=== PATIENT | female | born 1935 | race Caucasian/White ===

== ENCOUNTER 2017-02-12 11:24 | Emergency (ER) | payer OTHER, MEDICARE ==
[~2017-02-12] VITALS: Ht 160 cm; Wt 83.1 kg
[~2017-02-12 11:24] MED LIST: ASPIRIN; BENI; METOPROLOL
[2017-02-12 14:20] LABS: POINT-OF-CARE METER ID UU14100415
[2017-02-12] MEDS ORDERED: MEDROL DOSEPAK4 MG PO (17:22)
[2017-02-12] MEDS ORDERED: ULTRAM50 MG PO (17:22)
[2017-02-12 17:35] VITALS: BP 173/89
== END 2017-02-12 17:46 | disposition home or self-care (01) ==
LOC: EME 11:24
PROVIDERS: Emergency Medicine
DX: M48.06 Spinal stenosis, lumbar region (principal); E11.9 Type 2 diabetes mellitus without complications; J44.9 Chronic obstructive pulmonary disease, unspecified; I10 Essential (primary) hypertension; Z85.038 Personal history of other malignant neoplasm of large intestine; Z79.82 Long term (current) use of aspirin; Z88.0 Allergy status to penicillin; Z88.8 Allergy status to other drugs, medicaments and biological substances; Z91.041 Radiographic dye allergy status
CPT/HCPCS: 72148; 82948; 99281; 99284; J3010; J7040; J7512

== ENCOUNTER 2017-03-06 16:59 | Emergency (ER) | payer OTHER, MEDICARE ==
[~2017-03-06] VITALS: Ht 160 cm; Wt 81.8 kg
[~2017-03-06 16:59] MED LIST changes: +MEDROL DOSEPAK4 MG PO; +ULTRAM50 MG PO
[2017-03-06] MEDS ORDERED: DILAUDID2 MG PO (18:52)
[2017-03-06 19:16] VITALS: BP 194/90
== END 2017-03-06 19:17 | disposition home or self-care (01) ==
LOC: EME 16:59
DX: M54.9 Dorsalgia, unspecified (principal); G89.29 Other chronic pain; M62.81 Muscle weakness (generalized); E11.9 Type 2 diabetes mellitus without complications; J44.9 Chronic obstructive pulmonary disease, unspecified; I10 Essential (primary) hypertension; Z85.038 Personal history of other malignant neoplasm of large intestine; Z79.82 Long term (current) use of aspirin; Z88.8 Allergy status to other drugs, medicaments and biological substances; Z88.0 Allergy status to penicillin; F43.21 Adjustment disorder with depressed mood
CPT/HCPCS: 90839; 99281; 99284

== ENCOUNTER 2018-01-01 20:31 | Emergency (ER) | payer OTHER, MEDICARE ==
[~2018-01-01] VITALS: Ht 157.5 cm; Wt 84.7 kg
[~2018-01-01 20:31] MED LIST changes: +ASPIR-LOW81 MG PO; -ASPIRIN; +DILAUDID2 MG PO; +LOPRESSOR50 MG PO; -METOPROLOL
[2018-01-01 20:45] VITALS: BP 157/94
[2018-01-01 22:49] LABS: HEMATOCRIT 43.5 % (36.0-46.0); MCH 29.2 PG (29.0-34.0); MCHC 34.5 G/DL (30.0-36.0); MCV 84.8 FL (83-99); PLATELET COUNT 140 K/uL (156-360); RBC DIS.WIDTH-CV 13.1 % (11.8-14.6); RBC DIS.WIDTH-SD 40.8 % (39-53); RED BLOOD COUNT 5.13 M/uL (3.80-5.20); WHITE BLOOD COUNT 12.6 K/uL (4.1-10.2)
[2018-01-01 22:54] LABS: INTER. NORMALIZED RATIO 1.1
[2018-01-01 22:57] LABS: PTT 25.6 SEC (25-37)
[2018-01-01] MEDS ORDERED: CLEOCIN300 MG PO (23:06)
[2018-01-01 23:23] LABS: CHLORIDE 99 MEQ/L (99-109); GFR ESTIMATE (CALCULATED) 57 mL/min/; GLUCOSE 181 mg/dL (70-99); POTASSIUM 4.2 MEQ/L (3.7-5.4); SODIUM 135 MEQ/L (136-147); UREA NITROGEN (BUN) 22 mg/dL (9-23)
== END 2018-01-01 23:52 | disposition home or self-care (01) ==
LOC: EME 20:31
PROVIDERS: Physician Assistant
DX: L03.116 Cellulitis of left lower limb (principal); E11.51 Type 2 diabetes mellitus with diabetic peripheral angiopathy without gangrene; E11.65 Type 2 diabetes mellitus with hyperglycemia; R60.0 Localized edema; I10 Essential (primary) hypertension; J43.9 Emphysema, unspecified; Z85.038 Personal history of other malignant neoplasm of large intestine; Z79.82 Long term (current) use of aspirin; Z88.0 Allergy status to penicillin; Z88.5 Allergy status to narcotic agent; Z88.6 Allergy status to analgesic agent
CPT/HCPCS: 73590; 80048; 85027; 85610; 85730; 93971; 99281; 99284

== ENCOUNTER 2018-01-13 22:49 | Inpatient (IN) | payer OTHER, MEDICARE ==
[~2018-01-13] VITALS: Ht 154.9 cm; Wt 75.5 kg
[~2018-01-13 22:49] MED LIST changes: +CLEOCIN300 MG PO
[2018-01-14 00:25] LABS: HEMATOCRIT 43.7 % (36.0-46.0); HEMOGLOBIN 15.8 G/DL (11.9-15.5); MCH 29.4 PG (29.0-34.0); MCHC 36.2 G/DL (30.0-36.0); MCV 81.2 FL (83-99); RBC DIS.WIDTH-CV 12.9 % (11.8-14.6); RBC DIS.WIDTH-SD 37.7 % (39-53); RED BLOOD COUNT 5.38 M/uL (3.80-5.20); WHITE BLOOD COUNT 15.9 K/uL (4.1-10.2)
[2018-01-14 00:27] LABS: PLATELET COUNT 186 K/uL (156-360)
[2018-01-14 00:36] LABS: ALBUMIN 3.9 g/dL (3.2-4.8); CHLORIDE 87 mEq/L (99-109); POTASSIUM 5.4 mEq/L (3.7-5.4); SODIUM 119 mEq/L (136-147)
[2018-01-14 00:38] LABS: TOTAL PROTEIN 6.8 g/dL (6.4-8.3)
[2018-01-14 00:39] LABS: GLUCOSE 716 mg/dL (70-99)
[2018-01-14 00:40] LABS: TOTAL BILIRUBIN 1.5 mg/dL (0.0-1.0)
[2018-01-14 00:42] LABS: ALKALINE PHOSPHATASE 116 IU/L (3-129); CREATININE 2.2 mg/dL (0.6-1.3); GFR ESTIMATE (CALCULATED) 23 mL/min/
[2018-01-14 00:43] LABS: UREA NITROGEN (BUN) 70 mg/dL (9-23)
[2018-01-14 00:44] LABS: AST (GOT) 13 IU/L (2-34)
[2018-01-14 00:45] LABS: ALT (GPT) 23 IU/L (3-49); LIPASE 127 U/L (1.0-51.0)
[2018-01-14] MEDS ORDERED: HUMALOG MI100 UNIT/6 SC ×2 (01:29)
[2018-01-14] MEDS ORDERED: IRBESARTAN-HCT1 EAC1 PO (01:29)
[2018-01-14 01:44] LABS: MAGNESIUM 2.4 mg/dL (1.3-2.7)
[2018-01-14 01:49] LABS: PHOSPHORUS 4.7 mg/dL (2.5-4.9)
[2018-01-14 01:53] LABS: TROP-I INTERPRETATION NEGATIVE; TROPONIN-I 0.01 ng/mL (0.0-0.30)
[2018-01-14 02:53] LABS: APPEARANCE SL.HAZY ((CLEAR)); BILIRUBIN NEGATIVE; BLOOD SMALL; COLOR YELLOW ((YELLOW)); GLUCOSE (STRIP) >=500; KETONES NEGATIVE; LEUKOCYTES LARGE; NITRITE NEGATIVE; PROTEIN (STRIP) NEGATIVE; UROBILINOGEN 0.2 MG/DL (0.2-1.0)
[2018-01-14 03:00] LABS: BACTERIA NONE SEEN /HPF; EPITHELIAL CELLS RARE /HPF; MUCUS NONE SEEN /LPF; UCUL ADDED? YES; WHITE BLOOD CELLS 30-40 /HPF (0-5)
[2018-01-14 03:47] LABS: POTASSIUM 4.5 mEq/L (3.7-5.4)
[2018-01-14 03:53] LABS: CHLORIDE 96 mEq/L (99-109); CREATININE 1.9 mg/dL (0.6-1.3); GFR ESTIMATE (CALCULATED) 27 mL/min/; GLUCOSE 322 mg/dL (70-99); SODIUM 127 mEq/L (136-147); UREA NITROGEN (BUN) 64 mg/dL (9-23)
[2018-01-14 07:19] VITALS: BP 183/78
[2018-01-14 12:47] VITALS: BP 173/74
[2018-01-14 22:02] LABS: HEMATOCRIT 32.9 % (36.0-46.0); MCH 30.2 PG (29.0-34.0); MCHC 34.7 G/DL (30.0-36.0); PLATELET COUNT 150 K/uL (156-360); RBC DIS.WIDTH-CV 13.2 % (11.8-14.6); RBC DIS.WIDTH-SD 41.9 % (39-53); WHITE BLOOD COUNT 20.1 K/uL (4.1-10.2)
[2018-01-14 22:03] LABS: HEMOGLOBIN 11.4 G/DL (11.9-15.5); RED BLOOD COUNT 3.78 M/uL (3.80-5.20)
[2018-01-14 22:12] LABS: POTASSIUM 5.4 mEq/L (3.7-5.4); SODIUM 130 mEq/L (136-147)
[2018-01-14 22:13] LABS: GLUCOSE 327 mg/dL (70-99)
[2018-01-14 22:18] LABS: UREA NITROGEN (BUN) 47 mg/dL (9-23)
[2018-01-14 22:23] LABS: CHLORIDE 109 mEq/L (99-109); CREATININE 1.4 mg/dL (0.6-1.3); GFR ESTIMATE (CALCULATED) 38 mL/min/
[2018-01-14 22:34] LABS: MODE RA; SITE LR; TOTAL RESP RATE 17 resp/min; pH 7.24 (7.35-7.45)
[2018-01-14 22:35] LABS: BASE EXCESS -14.8 mEq/L (-3 to +3); BICARBONATE 11.1 mEq/L (22-26); CARBOXY HGB 1.2 % (0-5); METHEMOGLOBIN 0.8 % (0-1.5); O2 SATURATION (CALCULATED) 96.9 % (95-99); PCO2 26 mm Hg (35-45); PO2 82 mm Hg (80-100)
[2018-01-14 22:51] LABS: TROP-I INTERPRETATION NEGATIVE; TROPONIN-I 0.08 ng/mL (0.0-0.30)
[2018-01-15] VITALS (20 sets, daily range): BP systolic 87–136; BP diastolic 47–83
[2018-01-15 01:09] LABS: DEVICE VENT; FI02 100 %; MECHANICAL RATE 18 resp/min; MODE ACVC; PEEP 5 CM/H20; SITE ALINE; TIDAL VOLUME 400 ML; TOTAL RESP RATE 18 resp/min
[2018-01-15 01:10] LABS: BASE EXCESS -10.3 mEq/L (-3 to +3); CARBOXY HGB 1.5 % (0-5); METHEMOGLOBIN 1.1 % (0-1.5); O2 SATURATION (CALCULATED) 100 % (95-99); PCO2 26 mm Hg (35-45); PO2 458 mm Hg (80-100); pH 7.34 (7.35-7.45)
[2018-01-15 01:28] LABS: BASOPHIL (%) 0.1 % (0-1); EOSINOPHIL (%) 0 % (0-5); HEMATOCRIT 26.3 % (36.0-46.0); HEMOGLOBIN 9.6 G/DL (11.9-15.5); IMMATURE GRANULOCYTE (%) 0.8 % (0.0-0.7); LYMPHOCYTE (%) 3.5 % (15-42); LYMPHOCYTE COUNT 0.8 K/uL (1.0-2.8); MCH 30.4 PG (29.0-34.0); MCHC 36.5 G/DL (30.0-36.0); MCV 83.2 FL (83-99); MONOCYTE (%) 6.8 % (3-12); MONOCYTE COUNT 1.5 K/uL (0-0.8); NEUTROPHIL (%) 88.8 % (45-76); NEUTROPHIL COUNT 19.5 K/uL (1.8-6.4); PLATELET COUNT 128 K/uL (156-360); RBC DIS.WIDTH-SD 39.6 % (39-53); RED BLOOD COUNT 3.16 M/uL (3.80-5.20)
[2018-01-15 01:43] LABS: CHLORIDE 116 mEq/L (99-109)
[2018-01-15 01:45] LABS: GLUCOSE 217 mg/dL (70-99)
[2018-01-15 01:49] LABS: GFR ESTIMATE (CALCULATED) 57 mL/min/
[2018-01-15 01:50] LABS: UREA NITROGEN (BUN) 42 mg/dL (9-23)
[2018-01-15 01:54] LABS: POTASSIUM 3.7 mEq/L (3.7-5.4); SODIUM 141 mEq/L (136-147)
[2018-01-15 03:39] LABS: DEVICE VENT; FI02 60 %; MECHANICAL RATE 18 resp/min; MODE ACVC; PCO2 29 mm Hg (35-45); PEEP 5 CM/H20; PO2 234 mm Hg (80-100); SITE ALINE; TIDAL VOLUME 400 ML; TOTAL RESP RATE 18 resp/min
[2018-01-15 03:40] LABS: BASE EXCESS -11.5 mEq/L (-3 to +3); BICARBONATE 13.9 mEq/L (22-26); METHEMOGLOBIN 0.7 % (0-1.5); O2 SATURATION (CALCULATED) 99.7 % (95-99); pH 7.29 (7.35-7.45)
[2018-01-15 03:50] LABS: CREATINE KINASE 136 IU/L (1-294)
[2018-01-15 03:53] LABS: TROP-I INTERPRETATION NEGATIVE; TROPONIN-I 0.08 ng/mL (0.0-0.30)
[2018-01-15 06:00] LABS: DEVICE VENT; FI02 60 %; MECHANICAL RATE 18 resp/min; MODE ACVC; PEEP 5 CM/H20; SITE ALINE; TIDAL VOLUME 400 ML; TOTAL RESP RATE 18 resp/min
[2018-01-15 06:01] LABS: PCO2 27 mm Hg (35-45); PO2 240 mm Hg (80-100); pH 7.36 (7.35-7.45)
[2018-01-15 06:02] LABS: BASE EXCESS -8.9 mEq/L (-3 to +3); BICARBONATE 15.3 mEq/L (22-26); CARBOXY HGB 1.1 % (0-5); METHEMOGLOBIN 0.8 % (0-1.5); O2 SATURATION (CALCULATED) 99.6 % (95-99)
[2018-01-15 06:47] LABS: TROP-I INTERPRETATION NEGATIVE; TROPONIN-I 0.09 ng/mL (0.0-0.30)
[2018-01-15 06:49] LABS: HEMATOCRIT 29.5 % (36.0-46.0); HEMOGLOBIN 10.8 G/DL (11.9-15.5); MCHC 36.6 G/DL (30.0-36.0); MCV 81.9 FL (83-99); PLATELET COUNT 134 K/uL (156-360); RBC DIS.WIDTH-CV 13.2 % (11.8-14.6); RBC DIS.WIDTH-SD 39.4 % (39-53)
[2018-01-15 06:52] LABS: WHITE BLOOD COUNT 30.7 K/uL (4.1-10.2)
[2018-01-15 07:02] LABS: CHLORIDE 111 MEQ/L (99-109); POTASSIUM 4.4 MEQ/L (3.7-5.4); SODIUM 140 MEQ/L (136-147)
[2018-01-15 07:06] LABS: ABS NEUTROPHIL COUNT 30.2; BAND NEUTROPHILS 2.6 % (0-8.0); CHLORIDE 110 MEQ/L (99-109); CREATININE 1.3 MG/DL (0.6-1.3); EOSINOPHIL ABS CT 0; GFR ESTIMATE (CALCULATED) 42 mL/min/; GLUCOSE 265 mg/dL (70-99); MAGNESIUM 1.6 mg/dl (1.3-2.7); MONOCYTES 1.7 % (0-9.0); PHOSPHORUS 3.5 mg/dL (2.5-4.9); POTASSIUM 4.2 MEQ/L (3.7-5.4); SEG.NEUTROPHILS 95.7 % (46.0-76.0); SMUDGE CELLS 1.7; SODIUM 137 MEQ/L (136-147); UREA NITROGEN (BUN) 40 mg/dL (9-23)
[2018-01-15 14:39] LABS: HEMATOCRIT 27.2 % (36.0-46.0); HEMOGLOBIN 9.8 G/DL (11.9-15.5); MCH 29.5 PG (29.0-34.0); MCV 81.9 FL (83-99); PLATELET COUNT 118 K/uL (156-360); RBC DIS.WIDTH-CV 13.7 % (11.8-14.6); RBC DIS.WIDTH-SD 40.4 % (39-53); RED BLOOD COUNT 3.32 M/uL (3.80-5.20); WHITE BLOOD COUNT 21.5 K/uL (4.1-10.2)
[2018-01-15 15:05] LABS: CHLORIDE 106 MEQ/L (99-109); POTASSIUM 4.4 MEQ/L (3.7-5.4); SODIUM 137 MEQ/L (136-147)
[2018-01-15 15:26] LABS: TROP-I INTERPRETATION NEGATIVE; TROPONIN-I 0.12 ng/mL (0.0-0.30)
[2018-01-15 20:10] LABS: CHLORIDE 106 MEQ/L (99-109); POTASSIUM 3.9 MEQ/L (3.7-5.4); SODIUM 138 MEQ/L (136-147); TROP-I INTERPRETATION NEGATIVE; TROPONIN-I 0.16 ng/mL (0.0-0.30)
[2018-01-15 20:17] LABS: HEMATOCRIT 21.7 % (36.0-46.0); HEMOGLOBIN 7.9 G/DL (11.9-15.5); MCH 29.9 PG (29.0-34.0); MCHC 36.4 G/DL (30.0-36.0); MCV 82.2 FL (83-99); PLAT.SUFFICIENCY DECREASED; RBC DIS.WIDTH-CV 13.7 % (11.8-14.6); RBC DIS.WIDTH-SD 40.5 % (39-53); WHITE BLOOD COUNT 16.4 K/uL (4.1-10.2)
[2018-01-15 20:27] LABS: RED BLOOD COUNT 2.64 M/uL (3.80-5.20)
[2018-01-15 20:28] LABS: PLATELET COUNT 79 K/uL (156-360)
[2018-01-15 23:26] LABS: BASE EXCESS -4.3 mEq/L (-3 to +3); BICARBONATE 17.6 mEq/L (22-26); CARBOXY HGB 1.1 % (0-5); METHEMOGLOBIN 0.6 % (0-1.5); O2 SATURATION (CALCULATED) 98.1 % (95-99); PCO2 22 mm Hg (35-45); PO2 81 mm Hg (80-100); pH 7.51 (7.35-7.45)
[2018-01-15 23:27] LABS: COMMENTS - BLOOD GASES C+A+; DEVICE VENTILATOR; FI02 30 %; MECHANICAL RATE 18 resp/min; MODE AC; PEEP 5 CM/H20; TIDAL VOLUME 400 ML; TOTAL RESP RATE 26 resp/min
[2018-01-16] VITALS (14 sets, daily range): BP systolic 93–119; BP diastolic 42–66
[2018-01-16 05:24] LABS: BASOPHIL (%) 0.1 % (0-1); EOSINOPHIL (%) 0 % (0-5); HEMATOCRIT 24.8 % (36.0-46.0); HEMOGLOBIN 8.9 G/DL (11.9-15.5); LYMPHOCYTE (%) 4.8 % (15-42); MCH 29.4 PG (29.0-34.0); MCHC 35.9 G/DL (30.0-36.0); MCV 81.8 FL (83-99); MONOCYTE (%) 7.3 % (3-12); MONOCYTE COUNT 1.5 K/uL (0-0.8); NEUTROPHIL (%) 86.8 % (45-76); NEUTROPHIL COUNT 17.9 K/uL (1.8-6.4); NRBC (%) 0.1 /100 WBC (0-0); PLATELET COUNT 84 K/uL (156-360); RBC DIS.WIDTH-CV 13.8 % (11.8-14.6); RBC DIS.WIDTH-SD 40.6 % (39-53); RED BLOOD COUNT 3.03 M/uL (3.80-5.20); WHITE BLOOD COUNT 20.5 K/uL (4.1-10.2)
[2018-01-16 05:25] LABS: BASE EXCESS -0.2 mEq/L (-3 to +3); BICARBONATE 22.3 mEq/L (22-26); CARBOXY HGB 1.1 % (0-5); O2 SATURATION (CALCULATED) 96.2 % (95-99); PCO2 28 mm Hg (35-45); PO2 67 mm Hg (80-100); pH 7.51 (7.35-7.45)
[2018-01-16 05:26] LABS: COMMENTS - BLOOD GASES C+A+; DEVICE VENTILATOR; FI02 30 %; MECHANICAL RATE 18 resp/min; MODE AC; PEEP 5 CM/H20; TIDAL VOLUME 400 ML; TOTAL RESP RATE 20 resp/min
[2018-01-16 06:01] LABS: CHLORIDE 103 MEQ/L (99-109); CREATININE 1.5 MG/DL (0.6-1.3); GFR ESTIMATE (CALCULATED) 35 mL/min/; GLUCOSE 345 mg/dL (70-99); POTASSIUM 3.3 MEQ/L (3.7-5.4); SODIUM 137 MEQ/L (136-147); UREA NITROGEN (BUN) 38 mg/dL (9-23)
[2018-01-16 09:05] LABS: CARBOXY HGB 1.2 % (0-5); COMMENTS - BLOOD GASES C+; DEVICE VENT; FI02 50 %; METHEMOGLOBIN 0.3 % (0-1.5); MODE SPONT PS; PCO2 29 mm Hg (35-45); PEEP 5 CM/H20; PO2 66 mm Hg (80-100); PRES. SUPPORT 10 CM/H2O; SITE ARTLINE; TOTAL RESP RATE 20 resp/min; pH 7.51 (7.35-7.45)
[2018-01-16 09:06] LABS: BASE EXCESS 0.5 mEq/L (-3 to +3); BICARBONATE 23.1 mEq/L (22-26)
[2018-01-16 13:14] LABS: CHLORIDE 104 MEQ/L (99-109); CREATININE 1.4 MG/DL (0.6-1.3); GFR ESTIMATE (CALCULATED) 38 mL/min/; GLUCOSE 281 mg/dL (70-99); PHOSPHORUS 2.4 mg/dL (2.5-4.9); POTASSIUM 3.9 MEQ/L (3.7-5.4); SODIUM 135 MEQ/L (136-147); UREA NITROGEN (BUN) 36 mg/dL (9-23)
[2018-01-16 13:15] LABS: MAGNESIUM 2.2 mg/dl (1.3-2.7)
[2018-01-16 17:25] LABS: COMMENTS - BLOOD GASES C+; DEVICE 840; FI02 50 %; MECHANICAL RATE 14 resp/min; MODE A/C; PEEP 5 CM/H20; SITE ALINE; TIDAL VOLUME 400 ML; TOTAL RESP RATE 16 resp/min
[2018-01-16 17:26] LABS: BASE EXCESS -0.1 mEq/L (-3 to +3); BICARBONATE 22.6 mEq/L (22-26); CARBOXY HGB 1.2 % (0-5); METHEMOGLOBIN 0.5 % (0-1.5); PCO2 29 mm Hg (35-45); PO2 62 mm Hg (80-100)
[2018-01-16 19:29] LABS: BASOPHIL (%) 0.2 % (0-1); EOSINOPHIL (%) 0.1 % (0-5); HEMATOCRIT 24.7 % (36.0-46.0); IMMATURE GRANULOCYTE (%) 0.9 % (0.0-0.7); LYMPHOCYTE (%) 4.2 % (15-42); LYMPHOCYTE COUNT 1.1 K/uL (1.0-2.8); MCH 30.1 PG (29.0-34.0); MCHC 36.4 G/DL (30.0-36.0); MCV 82.6 FL (83-99); MONOCYTE (%) 5.9 % (3-12); MONOCYTE COUNT 1.6 K/uL (0-0.8); NEUTROPHIL (%) 88.7 % (45-76); NEUTROPHIL COUNT 23.4 K/uL (1.8-6.4); NRBC (%) 0.6 /100 WBC (0-0); PLATELET COUNT 87 K/uL (156-360); RBC DIS.WIDTH-CV 13.8 % (11.8-14.6); RBC DIS.WIDTH-SD 41.2 % (39-53); RED BLOOD COUNT 2.99 M/uL (3.80-5.20); WHITE BLOOD COUNT 26.4 K/uL (4.1-10.2)
[2018-01-16 23:45] LABS: BASE EXCESS -0.3 mEq/L (-3 to +3); BICARBONATE 21.7 mEq/L (22-26); CARBOXY HGB 1.2 % (0-5); COMMENTS - BLOOD GASES C+A+; DEVICE VENTILATOR; FI02 50 %; MECHANICAL RATE 12 resp/min; MODE AC; O2 SATURATION (CALCULATED) 96.7 % (95-99); PCO2 26 mm Hg (35-45); PEEP 5 CM/H20; PO2 71 mm Hg (80-100); TIDAL VOLUME 400 ML; TOTAL RESP RATE 25 resp/min; pH 7.53 (7.35-7.45)
[2018-01-17] VITALS (21 sets, daily range): BP systolic 96–167; BP diastolic 45–79
[2018-01-17 02:40] LABS: COMMENTS - BLOOD GASES C+; DEVICE VENT; FI02 50 %; MECHANICAL RATE 12 resp/min; MODE AC; PCO2 29 mm Hg (35-45); PEEP 5 CM/H20; PO2 72 mm Hg (80-100); SITE A-LINE; TIDAL VOLUME 400 ML; TOTAL RESP RATE 24 resp/min
[2018-01-17 02:41] LABS: BASE EXCESS -0.2 mEq/L (-3 to +3); BICARBONATE 22.6 mEq/L (22-26); CARBOXY HGB 1.5 % (0-5)
[2018-01-17 09:18] LABS: BASOPHIL (%) 0.1 % (0-1); EOSINOPHIL (%) 0 % (0-5); HEMATOCRIT 23.9 % (36.0-46.0); HEMOGLOBIN 8.3 G/DL (11.9-15.5); IMMATURE GRANULOCYTE (%) 1.9 % (0.0-0.7); LYMPHOCYTE (%) 4.5 % (15-42); LYMPHOCYTE COUNT 1.2 K/uL (1.0-2.8); MCH 29.3 PG (29.0-34.0); MCHC 34.7 G/DL (30.0-36.0); MCV 84.5 FL (83-99); MONOCYTE (%) 6.7 % (3-12); MONOCYTE COUNT 1.9 K/uL (0-0.8); NEUTROPHIL (%) 86.8 % (45-76); NEUTROPHIL COUNT 23.9 K/uL (1.8-6.4); NRBC (%) 2.5 /100 WBC (0-0); PLATELET COUNT 88 K/uL (156-360); RBC DIS.WIDTH-CV 13.8 % (11.8-14.6); RBC DIS.WIDTH-SD 42.2 % (39-53); RED BLOOD COUNT 2.83 M/uL (3.80-5.20); WHITE BLOOD COUNT 27.6 K/uL (4.1-10.2)
[2018-01-17 09:21] LABS: INTER. NORMALIZED RATIO 1.3
[2018-01-17 09:24] LABS: PTT 21.1 SEC (25-37)
[2018-01-17 09:40] LABS: CHLORIDE 103 MEQ/L (99-109); CREATININE 1.5 MG/DL (0.6-1.3); GFR ESTIMATE (CALCULATED) 35 mL/min/; GLUCOSE 195 mg/dL (70-99); POTASSIUM 3.9 MEQ/L (3.7-5.4); SODIUM 137 MEQ/L (136-147); UREA NITROGEN (BUN) 35 mg/dL (9-23)
[2018-01-17 09:55] LABS: CREATINE KINASE 3259 IU/L (1-294)
[2018-01-17 12:16] LABS: COMMENTS - BLOOD GASES C+; SITE ALINE
[2018-01-17 12:17] LABS: DEVICE 840; FI02 50 %; MECHANICAL RATE 12 resp/min; MODE A/C; PCO2 29 mm Hg (35-45); PEEP 5 CM/H20; TIDAL VOLUME 400 ML; TOTAL RESP RATE 21 resp/min; pH 7.52 (7.35-7.45)
[2018-01-17 12:18] LABS: BICARBONATE 23.7 mEq/L (22-26); CARBOXY HGB 1.8 % (0-5); METHEMOGLOBIN 1.2 % (0-1.5); PO2 105 mm Hg (80-100)
[2018-01-17 15:18] LABS: COMMENTS - BLOOD GASES C+; DEVICE 840; FI02 50 %; MECHANICAL RATE 12 resp/min; MODE A/C; SITE ALINE
[2018-01-17 15:19] LABS: BICARBONATE 24.8 mEq/L (22-26); CARBOXY HGB 1.8 % (0-5); METHEMOGLOBIN 1.7 % (0-1.5); PCO2 40 mm Hg (35-45); PEEP 5 CM/H20; PO2 51 mm Hg (80-100); TIDAL VOLUME 400 ML; TOTAL RESP RATE 21 resp/min
[2018-01-17 15:20] LABS: BASE EXCESS 0 mEq/L (-3 to +3)
[2018-01-17 18:09] LABS: BASOPHIL (%) 0.1 % (0-1); EOSINOPHIL (%) 0.1 % (0-5); HEMATOCRIT 23.1 % (36.0-46.0); LYMPHOCYTE (%) 5.4 % (15-42); LYMPHOCYTE COUNT 0.8 K/uL (1.0-2.8); MCH 28.7 PG (29.0-34.0); MCHC 34.6 G/DL (30.0-36.0); MCV 82.8 FL (83-99); MONOCYTE (%) 7.1 % (3-12); MONOCYTE COUNT 1.1 K/uL (0-0.8); NEUTROPHIL (%) 85.3 % (45-76); NEUTROPHIL COUNT 13.4 K/uL (1.8-6.4); NRBC (%) 2.7 /100 WBC (0-0); PLATELET COUNT 106 K/uL (156-360); RBC DIS.WIDTH-CV 14.7 % (11.8-14.6); RBC DIS.WIDTH-SD 44.4 % (39-53); RED BLOOD COUNT 2.79 M/uL (3.80-5.20); WHITE BLOOD COUNT 15.7 K/uL (4.1-10.2)
[2018-01-17 20:34] LABS: CHLORIDE 104 MEQ/L (99-109); CREATININE 1.4 MG/DL (0.6-1.3); GFR ESTIMATE (CALCULATED) 38 mL/min/; POTASSIUM 3.9 MEQ/L (3.7-5.4); SODIUM 138 MEQ/L (136-147); UREA NITROGEN (BUN) 35 mg/dL (9-23)
[2018-01-17 20:56] LABS: GLUCOSE 94 mg/dL (70-99)
[2018-01-18] VITALS (20 sets, daily range): BP systolic 112–162; BP diastolic 49–80
[2018-01-18 05:29] LABS: COMMENTS - BLOOD GASES C; SITE RR A-LINE
[2018-01-18 05:30] LABS: DEVICE VENT; FI02 50 %; MECHANICAL RATE 12 resp/min; MODE AC; PEEP 10 CM/H20; TIDAL VOLUME 400 ML; TOTAL RESP RATE 21 resp/min
[2018-01-18 05:31] LABS: PCO2 29 mm Hg (35-45); PO2 63 mm Hg (80-100); pH 7.54 (7.35-7.45)
[2018-01-18 05:32] LABS: BASE EXCESS 3.1 mEq/L (-3 to +3); BICARBONATE 24.8 mEq/L (22-26)
[2018-01-18 06:10] LABS: HEMATOCRIT 20.2 % (36.0-46.0); MCH 28.8 PG (29.0-34.0); MCHC 34.2 G/DL (30.0-36.0); MCV 84.2 FL (83-99); NRBC (%) 2.6 /100 WBC (0-0); PLATELET COUNT 88 K/uL (156-360); RBC DIS.WIDTH-CV 15.4 % (11.8-14.6); WHITE BLOOD COUNT 12.6 K/uL (4.1-10.2)
[2018-01-18 06:15] LABS: HEMOGLOBIN 6.9 G/DL (11.9-15.5)
[2018-01-18 06:26] LABS: ALBUMIN 1.8 G/DL (3.2-4.8); ALKALINE PHOSPHATASE 75 IU/L (3-129); ALT (GPT) 285 IU/L (3-49); AST (GOT) 155 IU/L (2-34); CHLORIDE 105 MEQ/L (99-109); CREATININE 1.2 MG/DL (0.6-1.3); GFR ESTIMATE (CALCULATED) 46 mL/min/; GLUCOSE 80 mg/dL (70-99); POTASSIUM 3.9 MEQ/L (3.7-5.4); SODIUM 138 MEQ/L (136-147); TOTAL BILIRUBIN 0.7 MG/DL (0.0-1.0); TOTAL PROTEIN 3.3 G/DL (6.4-8.3); UREA NITROGEN (BUN) 30 mg/dL (9-23)
[2018-01-18 13:19] LABS: COMMENTS - BLOOD GASES RR; DEVICE VENT; FI02 50 %; MODE SPONT; PEEP 5 CM/H20; PRES. SUPPORT 5 CM/H2O; SITE ALINE; TOTAL RESP RATE 30 resp/min
[2018-01-18 13:20] LABS: BICARBONATE 26.5 mEq/L (22-26); CARBOXY HGB 1.5 % (0-5); METHEMOGLOBIN 0.7 % (0-1.5); PCO2 31 mm Hg (35-45); PO2 65 mm Hg (80-100); pH 7.54 (7.35-7.45)
[2018-01-18 17:01] LABS: COMMENTS - BLOOD GASES RR; DEVICE HHFNC; FI02 100 %; O2 FLOW 50 L/MIN; PCO2 33 mm Hg (35-45); PO2 132 mm Hg (80-100); SITE ALINE; TOTAL RESP RATE 25 resp/min; pH 7.52 (7.35-7.45)
[2018-01-18 17:02] LABS: BICARBONATE 26.9 mEq/L (22-26); CARBOXY HGB 1.1 % (0-5); METHEMOGLOBIN 0.9 % (0-1.5)
[2018-01-19] VITALS (15 sets, daily range): BP systolic 111–166; BP diastolic 42–69
[2018-01-19 19:42] LABS: MCHC 33.8 G/DL (30.0-36.0); MCV 85.8 FL (83-99); NRBC (%) 1.8 /100 WBC (0-0); PLATELET COUNT 95 K/uL (156-360); RBC DIS.WIDTH-CV 14.6 % (11.8-14.6); RBC DIS.WIDTH-SD 44.9 % (39-53)
[2018-01-19 19:54] LABS: HEMOGLOBIN 10.8 G/DL (11.9-15.5); RED BLOOD COUNT 3.73 M/uL (3.80-5.20)
[2018-01-20] VITALS (13 sets, daily range): BP systolic 86–177; BP diastolic 51–96
[2018-01-20 05:15] LABS: HEMATOCRIT 30.9 % (36.0-46.0); HEMOGLOBIN 10.6 G/DL (11.9-15.5); MCHC 34.3 G/DL (30.0-36.0); MCV 84.7 FL (83-99); NRBC (%) 1.6 /100 WBC (0-0); RBC DIS.WIDTH-CV 14.7 % (11.8-14.6); RBC DIS.WIDTH-SD 44.4 % (39-53); RED BLOOD COUNT 3.65 M/uL (3.80-5.20); WHITE BLOOD COUNT 20.5 K/uL (4.1-10.2)
[2018-01-20 05:32] LABS: PLATELET COUNT 130 K/uL (156-360)
[2018-01-20 05:43] LABS: CHLORIDE 103 MEQ/L (99-109); CREATININE 0.9 MG/DL (0.6-1.3); GFR ESTIMATE (CALCULATED) > 59 mL/min/; POTASSIUM 4.6 MEQ/L (3.7-5.4); SODIUM 138 MEQ/L (136-147); UREA NITROGEN (BUN) 36 mg/dL (9-23)
[2018-01-20 05:44] LABS: GLUCOSE 167 mg/dL (70-99)
[2018-01-20 06:12] LABS: ABS NEUTROPHIL COUNT 19.2; BAND NEUTROPHILS 2.6 % (0-8.0); EOSINOPHIL ABS CT 0; LYMPHOCYTES 0.9 % (15.0-45.0); METAMYELOCYTES 0.9 %; MONOCYTES 2.6 % (0-9.0); MYELOCYTES 1.8 %; NUCLEATED RBC'S 3.5; SEG.NEUTROPHILS 91.2 % (46.0-76.0)
[2018-01-21] VITALS (21 sets, daily range): BP systolic 98–204; BP diastolic 54–111
[2018-01-21 05:50] LABS: HEMATOCRIT 33.4 % (36.0-46.0); HEMOGLOBIN 11.1 G/DL (11.9-15.5); MCH 28.8 PG (29.0-34.0); MCHC 33.2 G/DL (30.0-36.0); MCV 86.5 FL (83-99); PLATELET COUNT 153 K/uL (156-360); RBC DIS.WIDTH-CV 15.4 % (11.8-14.6); RBC DIS.WIDTH-SD 45.2 % (39-53); RED BLOOD COUNT 3.86 M/uL (3.80-5.20); WHITE BLOOD COUNT 21.8 K/uL (4.1-10.2)
[2018-01-21 06:16] LABS: CHLORIDE 105 MEQ/L (99-109); CREATININE 0.7 MG/DL (0.6-1.3); GFR ESTIMATE (CALCULATED) > 59 mL/min/; GLUCOSE 61 mg/dL (70-99); MAGNESIUM 1.8 mg/dl (1.3-2.7); PHOSPHORUS 3.4 mg/dL (2.5-4.9); POTASSIUM 4.6 MEQ/L (3.7-5.4); SODIUM 138 MEQ/L (136-147); UREA NITROGEN (BUN) 33 mg/dL (9-23)
[2018-01-21 16:16] LABS: APPEARANCE CLEAR ((CLEAR)); BILIRUBIN NEGATIVE; BLOOD MODERATE; COLOR YELLOW ((YELLOW)); GLUCOSE (STRIP) >=500; KETONES NEGATIVE; LEUKOCYTES NEGATIVE; NITRITE NEGATIVE; PROTEIN (STRIP) NEGATIVE; SPECIFIC GRAVITY 1.016 (1.000-1.030); UROBILINOGEN 0.2 MG/DL (0.2-1.0)
[2018-01-21 16:34] LABS: BACTERIA NONE SEEN /HPF; EPITHELIAL CELLS RARE /HPF; MUCUS NONE SEEN /LPF; RED BLOOD CELLS TNTC /HPF (0-5); WHITE BLOOD CELLS 0-5 /HPF (0-5)
[2018-01-22] VITALS (17 sets, daily range): BP systolic 121–171; BP diastolic 56–92
[2018-01-22 06:01] LABS: MCH 28.9 PG (29.0-34.0); MCHC 33.2 G/DL (30.0-36.0); MCV 87.2 FL (83-99); NRBC (%) 0.7 /100 WBC (0-0); RBC DIS.WIDTH-CV 16.1 % (11.8-14.6); RBC DIS.WIDTH-SD 45.8 % (39-53); WHITE BLOOD COUNT 12.5 K/uL (4.1-10.2)
[2018-01-22 06:04] LABS: HEMOGLOBIN 13.6 G/DL (11.9-15.5)
[2018-01-22 06:26] LABS: CHLORIDE 103 MEQ/L (99-109); CREATININE 0.7 MG/DL (0.6-1.3); GFR ESTIMATE (CALCULATED) > 59 mL/min/; MAGNESIUM 1.8 mg/dl (1.3-2.7); POTASSIUM 4.9 MEQ/L (3.7-5.4); SODIUM 136 MEQ/L (136-147); UREA NITROGEN (BUN) 31 mg/dL (9-23)
[2018-01-22 06:27] LABS: GLUCOSE 146 mg/dL (70-99)
[2018-01-22 07:51] LABS: PLATELET CLUMPS PRESENT - PLATELET COUNT APPEARS ADEQUATE
[2018-01-22 07:54] LABS: PLATELET COUNT UNABLE TO REPORT K/uL (156-360)
[2018-01-23 00:33] VITALS: BP 111/60
[2018-01-23 04:07] VITALS: BP 119/63
[2018-01-23 07:02] LABS: HEMATOCRIT 31.8 % (36.0-46.0); HEMOGLOBIN 10.2 G/DL (11.9-15.5); MCH 28.5 PG (29.0-34.0); MCHC 32.1 G/DL (30.0-36.0); MCV 88.8 FL (83-99); NRBC (%) 0.2 /100 WBC (0-0); RBC DIS.WIDTH-CV 15.5 % (11.8-14.6); RBC DIS.WIDTH-SD 45.9 % (39-53); RED BLOOD COUNT 3.58 M/uL (3.80-5.20); WHITE BLOOD COUNT 11.9 K/uL (4.1-10.2)
[2018-01-23 07:26] LABS: CHLORIDE 101 MEQ/L (99-109); CREATININE 0.7 MG/DL (0.6-1.3); GFR ESTIMATE (CALCULATED) > 59 mL/min/; GLUCOSE 130 mg/dL (70-99); MAGNESIUM 1.7 mg/dl (1.3-2.7); PHOSPHORUS 4.1 mg/dL (2.5-4.9); POTASSIUM 4.8 MEQ/L (3.7-5.4); SODIUM 132 MEQ/L (136-147); UREA NITROGEN (BUN) 31 mg/dL (9-23)
[2018-01-23 07:49] LABS: PLAT.SUFFICIENCY DECREASED
[2018-01-23 07:50] LABS: PLATELET COUNT 120 K/uL (156-360)
[2018-01-23 08:05] VITALS: BP 136/81
[2018-01-23 11:59] VITALS: BP 119/56
[2018-01-23 16:40] VITALS: BP 134/82
[2018-01-24 00:19] VITALS: BP 153/80
[2018-01-24 06:00] LABS: HEMOGLOBIN 10.6 G/DL (11.9-15.5); MCH 28.3 PG (29.0-34.0); MCHC 32.1 G/DL (30.0-36.0); MCV 88.2 FL (83-99); PLATELET COUNT 138 K/uL (156-360); RBC DIS.WIDTH-CV 15.9 % (11.8-14.6); RBC DIS.WIDTH-SD 46.6 % (39-53); RED BLOOD COUNT 3.74 M/uL (3.80-5.20); WHITE BLOOD COUNT 12.6 K/uL (4.1-10.2)
[2018-01-24 06:37] LABS: CHLORIDE 102 MEQ/L (99-109); CREATININE 0.7 MG/DL (0.6-1.3); GFR ESTIMATE (CALCULATED) > 59 mL/min/; GLUCOSE 153 mg/dL (70-99); MAGNESIUM 1.8 mg/dl (1.3-2.7); PHOSPHORUS 4.2 mg/dL (2.5-4.9); SODIUM 135 MEQ/L (136-147); UREA NITROGEN (BUN) 30 mg/dL (9-23)
[2018-01-24 07:16] VITALS: BP 116/62
[2018-01-24 16:10] VITALS: BP 146/81
[2018-01-24 19:42] VITALS: BP 127/71
[2018-01-25 00:02] VITALS: BP 106/56
[2018-01-25 04:00] VITALS: BP 140/65
[2018-01-25 06:33] LABS: HEMATOCRIT 34.6 % (36.0-46.0); HEMOGLOBIN 11.4 G/DL (11.9-15.5); MCH 29.2 PG (29.0-34.0); MCHC 32.9 G/DL (30.0-36.0); MCV 88.7 FL (83-99); NRBC (%) 0.2 /100 WBC (0-0); PLATELET COUNT 156 K/uL (156-360); RBC DIS.WIDTH-CV 15.8 % (11.8-14.6); RBC DIS.WIDTH-SD 47.6 % (39-53); WHITE BLOOD COUNT 13.5 K/uL (4.1-10.2)
[2018-01-25 07:11] LABS: CHLORIDE 103 MEQ/L (99-109); CREATININE 0.7 MG/DL (0.6-1.3); GFR ESTIMATE (CALCULATED) > 59 mL/min/; GLUCOSE 84 mg/dL (70-99); MAGNESIUM 1.8 mg/dl (1.3-2.7); PHOSPHORUS 3.8 mg/dL (2.5-4.9); POTASSIUM 4.9 MEQ/L (3.7-5.4); SODIUM 137 MEQ/L (136-147); UREA NITROGEN (BUN) 31 mg/dL (9-23)
[2018-01-25 08:32] VITALS: BP 124/56
[2018-01-25 16:51] VITALS: BP 160/72
[2018-01-25 20:46] VITALS: BP 145/70
[2018-01-26 00:14] VITALS: BP 179/74
[2018-01-26 03:59] VITALS: BP 156/72
[2018-01-26 06:59] LABS: HEMATOCRIT 33.1 % (36.0-46.0); HEMOGLOBIN 10.9 G/DL (11.9-15.5); MCH 29.4 PG (29.0-34.0); MCHC 32.9 G/DL (30.0-36.0); MCV 89.2 FL (83-99); PLATELET COUNT 146 K/uL (156-360); RBC DIS.WIDTH-CV 15.9 % (11.8-14.6); RBC DIS.WIDTH-SD 48.5 % (39-53); RED BLOOD COUNT 3.71 M/uL (3.80-5.20); WHITE BLOOD COUNT 11.5 K/uL (4.1-10.2)
[2018-01-26 07:31] VITALS: BP 144/63
[2018-01-26 08:45] LABS: CHLORIDE 99 MEQ/L (99-109); CREATININE 0.9 MG/DL (0.6-1.3); GFR ESTIMATE (CALCULATED) > 59 mL/min/; MAGNESIUM 1.7 mg/dl (1.3-2.7); PHOSPHORUS 4.6 mg/dL (2.5-4.9); POTASSIUM 4.8 MEQ/L (3.7-5.4); SODIUM 133 MEQ/L (136-147); UREA NITROGEN (BUN) 33 mg/dL (9-23)
[2018-01-26 08:46] LABS: GLUCOSE 271 mg/dL (70-99)
[2018-01-26 10:40] LABS: HEMOGLOBIN A1c (GLYCOHEMOGLOB) 6.7 % (Below 5.7)
[2018-01-26 11:05] VITALS: BP 124/67
[2018-01-26 15:57] VITALS: BP 1121/64
[2018-01-26 23:37] VITALS: BP 119/57
[2018-01-27 06:25] LABS: HEMATOCRIT 30.2 % (36.0-46.0); HEMOGLOBIN 9.9 G/DL (11.9-15.5); MCH 29.6 PG (29.0-34.0); MCHC 32.8 G/DL (30.0-36.0); MCV 90.4 FL (83-99); PLATELET COUNT 158 K/uL (156-360); RBC DIS.WIDTH-CV 15.7 % (11.8-14.6); RBC DIS.WIDTH-SD 49.4 % (39-53); RED BLOOD COUNT 3.34 M/uL (3.80-5.20); WHITE BLOOD COUNT 11.2 K/uL (4.1-10.2)
[2018-01-27 06:52] LABS: CHLORIDE 101 MEQ/L (99-109); GFR ESTIMATE (CALCULATED) 57 mL/min/; GLUCOSE 197 mg/dL (70-99); MAGNESIUM 1.8 mg/dl (1.3-2.7); PHOSPHORUS 4.3 mg/dL (2.5-4.9); POTASSIUM 4.9 MEQ/L (3.7-5.4); SODIUM 134 MEQ/L (136-147); UREA NITROGEN (BUN) 40 mg/dL (9-23)
[2018-01-27 08:12] VITALS: BP 139/62; BP 96/56
[2018-01-27] MEDS ORDERED: ELIQUIS2.5 MG PO (13:53)
[2018-01-27] MEDS ORDERED: NOVOLOG MI100 UNIT/3 SC ×2 (13:56→13:57)
[2018-01-27] MEDS ORDERED: NOVOLOG 10100 UNITS/ SC (13:57)
[2018-01-27] MEDS ORDERED: TYLENOL REGULA325 MG PO (13:58)
[2018-01-27] MEDS ORDERED: SANI-SUPP1 EACH PR (13:58)
[2018-01-27] MEDS ORDERED: DOCUSATE SODIU100 MG PO (13:58)
[2018-01-27] MEDS ORDERED: Zeasorb Antifungal T TP (13:59)
[2018-01-27] MEDS ORDERED: FAMOTIDINE20 MG PO (13:59)
[2018-01-27] MEDS ORDERED: GLUCAGEN1 MG/1 ML IM/SC (13:59)
[2018-01-27] MEDS ORDERED: DIFLUCAN200 MG PO (14:03)
[2018-01-27] MEDS ORDERED: LYRICA50 MG PO (14:04)
[2018-01-27] MEDS ORDERED: HYDROMORPHONE HC2 MG PO (14:04)
[2018-01-27 16:30] VITALS: BP 128/69
== END 2018-01-27 19:22 | disposition designated cancer center or children's hospital (05) | DRG 270 ==
LOC: EME → EDBD 22:49 → EME 22:49 → 4WEST 01-14 05:06 → 5EAST 01-14 05:06 → EDOF 01-14 05:06 → 5EAST 01-14 05:52 → ENRESERV 01-14 14:36 → 5EAST 01-14 20:39 → ENRESERV 01-14 23:01 → 4WEST 01-14 23:53 → ENRESERV 01-22 17:14 → 3EAST 01-22 18:04
PROVIDERS: Emergency Medicine; Hospitalist; Internal Medicine; Internal Medicine Critical Care Medicine; Physician Assistant; Specialist; Surgery
DX: I70.293 Other atherosclerosis of native arteries of extremities, bilateral legs (principal); E11.52 Type 2 diabetes mellitus with diabetic peripheral angiopathy with gangrene; L03.116 Cellulitis of left lower limb; J96.01 Acute respiratory failure with hypoxia; N17.9 Acute kidney failure, unspecified; E11.65 Type 2 diabetes mellitus with hyperglycemia; N30.00 Acute cystitis without hematuria; L89.152 Pressure ulcer of sacral region, stage 2; T81.30XA Disruption of wound, unspecified, initial encounter; A41.9 Sepsis, unspecified organism; B37.2 Candidiasis of skin and nail; J01.31 Acute recurrent sphenoidal sinusitis; E86.0 Dehydration; I48.91 Unspecified atrial fibrillation; E87.1 Hypo-osmolality and hyponatremia; I10 Essential (primary) hypertension; J44.9 Chronic obstructive pulmonary disease, unspecified; S60.521A Blister (nonthermal) of right hand, initial encounter; R65.21 Severe sepsis with septic shock; E87.2 Acidosis; E66.9 Obesity, unspecified; J81.1 Chronic pulmonary edema; J32.3 Chronic sphenoidal sinusitis; M47.816 Spondylosis without myelopathy or radiculopathy, lumbar region; G54.6 Phantom limb syndrome with pain; M19.90 Unspecified osteoarthritis, unspecified site; M62.82 Rhabdomyolysis; L89.150 Pressure ulcer of sacral region, unstageable; Y92.238 Other place in hospital as the place of occurrence of the external cause; Y84.8 Other medical procedures as the cause of abnormal reaction of the patient, or of later complication, without mention of misadventure at the time of the procedure; Z85.038 Personal history of other malignant neoplasm of large intestine; Z83.3 Family history of diabetes mellitus; Z79.4 Long term (current) use of insulin; Z98.1 Arthrodesis status; Z82.49 Family history of ischemic heart disease and other diseases of the circulatory system; Z90.49 Acquired absence of other specified parts of digestive tract; Z79.899 Other long term (current) drug therapy; Z68.36 Body mass index [BMI] 36.0-36.9, adult
CPT/HCPCS: 36600; 70450; 71045; 71046; 72100; 72131; 74176; 78582; 80048; 80048 91; 80051; 80053; 80202; 81003; 82330; 82550; 82550 91; 82948; 83036; 83605; 83690; 83735; 83930; 84100; 84484; 85025; 85025 91; 85027; 85379; 85610; 85730; 86850; 86900; 86901; 86920; 87040; 87070; 87086; 87205; 87493; 87641; 88307; 88311; 92526 GN; 92610 GN; 93005; 93926; 94002; 94003; 94640; 94669; 94760; 94799; 99281; 99285; A6214; A9540; A9567; C1725; C1751; C1753; C1768; C1769; C1788; C1874; C1894; J0153; J0330; J0360; J0610; J0690; J0696; J1100; J1170; J1200; J1450; J1644; J1815; J1940; J2250; J2370; J2405; J2543; J2704; J2720; J2920; J2930; J3010; J3370; J3475; J3480; J7030; J7040; J7050; J7060; J7070; J7120; J7512; P9016; P9035; S0028; S0073